=== PATIENT | female | born 1955 | race Asian ===

== ENCOUNTER 2022-12-19 11:04 | Emergency (ER) | payer OTHER ==
[2022-12-19] MEDS ORDERED: MAG HYDROX/AL HYDROX/SIMETH 30 ML UDC PO STA (11:33)
[2022-12-19] MEDS ORDERED: FAMOTIDINE 20 MG TABLET PO STA (11:33)
--- NOTE | 2022-12-19 11:33 | ED Physician Documentation ---
History of Present Illness - Stated complaint Stated Complaint: SORE THROAT - Chief complaint Chief Complaint: Heent - History obtained from History obtained from: Patient - Additonal information Additional information: 67-year-old female with a past medical history of GERD presents with a reported exacerbation of her GERD. She has had some reflux and mild midepigastric tenderness Without guarding on physical exam and reports a sour taste in her mouth. Her symptoms worsen yesterday after she drank some alcohol in celebration of a friend's birthday. She does not drink on a daily basis but does tend to develop worsening GERD symptoms when she drinks any alcohol. She does also smoke cigarettes daily and states she has been told that she needs to quit and if they are contributing to her symptoms but she has not done so yet. She is on omeprazole, takes only as needed and took it today with substantial relief in her symptoms. She has not had any other abdominal pain, no nausea or vomiting, no diarrhea or constipation, no urinary symptoms. She denies any chest pain or difficulty breathing. She does not use any NSAIDs to her knowledge. She has not seen a doctor in several years, and has never had any endoscopy. Review of Systems Constitutional: reports: Reviewed and negative Eyes: reports: Reviewed and negative Ears: reports: Reviewed and negative Nose: reports: Reviewed and negative Throat: reports: Reviewed and negative Cardiac: reports: Reviewed and negative Respiratory: reports: Reviewed and negative GI: reports: Other (Reflux). denies: Abdominal Pain, Abdominal Swelling, Nausea, Vomiting, Constipation, Diarrhea, Hematemesis, Bloody / black stool : reports: Reviewed and negative Skin: reports: Reviewed and negative Musculoskeletal: reports: Reviewed and negative Neurologic: reports: Reviewed and negative Psychiatric: reports: Reviewed and negative Endocrine: reports: Reviewed and negative PD PAST MEDICAL HISTORY - Past Medical History Past Medical History: Yes GI: GERD Other Past Medical History: Tobacco abuse, alcohol use. - Present Medications Home Medications: Ambulatory Orders Medication Instructions Recorded Confirmed Sucralfate [Carafate] 1 gm PO ACHS #420 ml 12/19/22 - Allergies Allergies/Adverse Reactions: Allergies Allergy/AdvReac Type Severity Reaction Status Date / Time No Known Drug Allergies Allergy Verified 12/19/22 11:16 PD ED PE NORMAL - Vitals Vital signs reviewed: Yes - General General: Alert and oriented X 3, No acute distress, Well developed/nourished - HEENT HEENT: Atraumatic, Pharynx benign - Neck Neck: Supple, no meningeal sign, No JVD - Cardiac Cardiac: RRR, No murmur, No gallop, No rub, Strong equal pulses - Respiratory Respiratory: No respiratory distress, Clear bilaterally - Abdomen Abdomen: Normal bowel sounds, Soft, Non tender, Non distended, No organomegaly, Other ( mild mid epigastric tenderness with out guarding. No other abd ttp, no distension. ) - Derm Derm: Normal color, Warm and dry, No rash - Neuro Neuro: Alert and oriented X 3, No motor deficit, No sensory deficit, Normal speech Eye Opening: Spontaneous Motor: Obeys Commands Verbal: Oriented GCS Score: 15 Results - Vitals Vitals: Vital Signs - 24 hr 12/19/22 12/19/22 11:11 12:42 Temperature 37.0 C Heart Rate 117 H 96 Respiratory 16 18 Rate Blood Pressure 160/97 H 176/101 H O2 Saturation 99 100 PD Medical Decision Making - ED course Complexity details: re-evaluated patient, considered differential, d/w patient ED course: 67-year-old female with a past medical history of GERD, tobacco use and o ccasional alcohol use presents today with sour taste in her mouth and increasing reflux symptoms. She tried omeprazole this morning without relief. On exam, she is well-appearing, she has minimal midepigastric tenderness with palpation but no other abdominal tenderness, no distention. She is mildly tachycardic on exam but did smoke just prior to coming in. Her symptoms worsened after drinking alcohol yesterday and she may have a mild gastritis. I recommended that we treat with Maalox and famotidine here, and and omeprazole she was given these with improvement in her symptoms. Her pain did not go away completely but she was feeling better. I think she is stable for discharge with treatment for exacerbation of her GERD, recommended she increase omeprazole to twice a day and we will give a short course Of Carafate for her symptoms. She was advised to avoid any alcohol, NSAIDs, spicy or heavy foods. I recommend a clear liquid diet today and advancing as tolerated. I advised her to try to quit smoking, and avoid coffee and other irritants. She may benefit from an endoscopy if her symptoms do not improve as she does have some risk factors for gastric cancer, H. pylori, or chronic changes from GERD. Patient was also noted to be hypertensive here. She states she does not have a history of hypertension but has not seen a physician for several years. It was recommended that she call tomorrow to reestablish care with her primary care provider and follow-up for hypertension as well as tobacco use, and to schedule follow-up for possible outpatient endoscopy. I discussed return precautions if new or worsening symptoms including increasing abdominal pain, vomiting, fever, abdominal distention or other new concerns. Departure - Departure Disposition: 01 Home, Self Care Clinical Impression: Dyspepsia, Tobacco abuse counseling Hypertension Qualifiers: Hypertension type: primary hypertension Qualified Code(s): I10 - Essential (primary) hypertension Condition: Good Instructions: ED GERD Prescriptions: Sucralfate [Carafate] 1 gm PO ACHS #420 ml Comments: Please increase your omeprazole to twice daily for the next 7 days and take the new prescription Carafate. I recommend you see your primary doctor and consider referral for endoscopy if you have ongoing symptoms. Please adhere to low spice and low fat diet, avoid tobacco products/smoking, avoid alcohol, and do not take any ibuprofen or naproxen. Your blood pressure is also elevated and I recommend recheck in the next week or two. Medication sent to [facility] Forms: PCP List Discharge Date/Time: 12/19/22 12:44
[2022-12-19 12:50] VITALS: BP 176/101
== END 2022-12-19 12:44 | disposition home or self-care (01) ==
LOC: ED 11:04
DX: K21.9 Gastro-esophageal reflux disease without esophagitis (principal); I10 Essential (primary) hypertension; F17.210 Nicotine dependence, cigarettes, uncomplicated
CPT/HCPCS: 99282; 99283; A9270

== ENCOUNTER 2023-04-08 13:42 | Outpatient (CLI) | payer OTHER ==
--- NOTE | 2023-04-12 13:05 | Mammography Report ---
BILATERAL FIRST EVER DIGITAL SCREENING MAMMOGRAM 3D/2D: 04/08/2023 CLINICAL: Baseline exam. Routine screening. No prior exams were available for comparison. There are scattered areas of fibroglandular density in both breasts (category b / 25%-50% glandular t issue). There is an oval focal asymmetry in the left breast at 9 o'clock posterior depth. No other significant masses, calcifications, or other findings are seen in either breast. IMPRESSION: INCOMPLETE: NEEDS ADDITIONAL IMAGING EVALUATION The oval focal asymmetry in the left breast is indeterminate. Additional views with possible ultraso und are recommended. Based on the Tyrer Cuzick model (a risk assessment model) the patients lifetime risk is 3.5% and her 10 year risk is 1.8%. According to the ACR, ACS, and NCCN guidelines, an annual breast MRI exam armando g with mammogram is recommended if the patients lifetime risk is 20% or greater. This exam was interpreted at Station ID: [id number]. NOTE: For mammograms, a report in lay terms will be sent to the patient. Approximately 15% of breast malignancies will not be visualized mammographically. In the management of a palpable breast mass, a negative mammogram must not discourage biopsy of a clinically suspicious lesion. Electronically Signed By: Eduardo herrera/sadaf:04/11/2023 11:30:13 ACR BI-RADS Category 0: Incomplete 3340F PARENCHYMAL PATTERN: (A) - The breast(s) demonstrate(s) scattered fibroglandular densities. BI-RADS CATEGORY: (0) - 0 Mammo and [place] [id number] Immediate follow-up LATERALITY: (L)
== END 2023-04-08 13:43 | disposition home or self-care (01) ==
LOC: DI 13:42
PROVIDERS: ATTEND Physician Assistant
DX: Z12.31 Encounter for screening mammogram for malignant neoplasm of breast (principal); R92.8 Other abnormal and inconclusive findings on diagnostic imaging of breast; R92.323 Mammographic fibroglandular density, bilateral breasts

== ENCOUNTER 2023-05-13 07:47 | Outpatient (CLI) | payer OTHER ==
--- NOTE | 2023-05-18 12:57 | Ultrasound Report ---
LIMITED ULTRASOUND OF LEFT BREAST: 05/13/2023 CLINICAL: Patient returns today to evaluate a focal asymmetry in the left breast. Comparison is made to exams dated: 05/13/2023 mammogram and 04/08/2023 mammogram - [facility]. Real-time ultrasound of the left breast 8 o'clock region was performed. Rowan scale images of the re al-time examination were reviewed. There is a possible 0.4 cm x 0.3 cm x 0.4 cm oval mass with a circumscribed margin in the left breast at 8 o'clock middle depth 3 cm from the nipple. This correlates with mammography findings. IMPRESSION: PROBABLY BENIGN The possible 0.4 cm x 0.3 cm x 0.4 cm oval mass in the left breast is probably benign, possibly a sma ll intramammary lymph node. A follow-up mammogram and an ultrasound in 6 months is recommended to demonstrate stability. This exam was interpreted at Station ID: [id number]. Electronically Signed By: Ebenezer West M.D. lc/:05/13/2023 09:23:15 Ultrasound BI-RADS: 3 Probably benign BI-RADS CATEGORY: (3) - 3 Mammo and [place] [id number] 6 month follow-up LATERALITY: (B)
--- NOTE | 2023-05-18 12:57 | Mammography Report ---
UNILATERAL LEFT DIGITAL DIAGNOSTIC MAMMOGRAM 3D/2D WITH SPOT COMPRESSION: 05/13/2023 CLINICAL: Patient returns today to evaluate a focal asymmetry in the left breast. Comparison is made to exam dated: 04/08/2023 mammogram - [facility]. There are scattered areas of fibroglandular density in the left breast (category b / 25%-50% glandula r tissue). There is a 0.5 cm oval mass with a circumscribed margin in the left breast at 9 o'clock posterior dep th. This is seen in additional views. No other significant masses or calcifications are seen in the breast. IMPRESSION: INCOMPLETE: NEEDS ADDITIONAL IMAGING EVALUATION The 0.5 cm oval mass in the left breast is indeterminate. An ultrasound is recommended. Based on the Tyrer Cuzick model (a risk assessment model) the patients lifetime risk is 3.5% and her 10 year risk is 1.8%. According to the ACR, ACS, and NCCN guidelines, an annual breast MRI exam armando g with mammogram is recommended if the patients lifetime risk is 20% or greater. This exam was interpreted at Station ID: [id number]. NOTE: For mammograms, a report in lay terms will be sent to the patient. Approximately 15% of breast malignancies will not be visualized mammographically. In the management of a palpable breast mass, a negative mammogram must not discourage biopsy of a clinically suspicious lesion. Electronically Signed By: Ebenezer West M.D. lc/:05/13/2023 09:21:29 ACR BI-RADS Category 0: Incomplete 3340F PARENCHYMAL PATTERN: (A) - The breast(s) demonstrate(s) scattered fibroglandular densities. BI-RADS CATEGORY: (0) - 0 Ultrasound [id number] Immediate follow-up LATERALITY: (B)
== END 2023-05-13 07:48 | disposition home or self-care (01) ==
LOC: DI 07:47
PROVIDERS: ATTEND Physician Assistant
DX: R92.8 Other abnormal and inconclusive findings on diagnostic imaging of breast (principal)

== ENCOUNTER 2023-05-20 09:42 | Outpatient (CLI) | payer OTHER ==
--- NOTE | 2023-05-20 14:39 | DEXA Report ---
PROCEDURE: Dexa Spine and/or Hip INDICATIONS: POST MENOPAUSAL TECHNIQUE: Dual energy x-ray absorptiometry (DXA) was performed on a [facility]. Regions measur ed are the AP Spine, femoral neck, and if needed forearm. COMPARISON: None. FINDINGS: Lumbar Spine: Bone Mineral Density 0.759 g/cm/cm,T score -3.5. Left Femoral Neck: Bone Mineral Density 0.686 g/cm/cm, T score -2.5. Left Hip: Bone Mineral Density 0.706 g/cm/cm,T score -2.4. (T score greater or equal to -1.0: NORMAL) (T score from -1.1 to -2.4: OSTEOPENIA) (T score less than or equal to -2.5 to: OSTEOPOROSIS) Impression: By WHO criteria, this patient has osteoporosis. Patients with diagnosis of osteoporosis or osteopenia should have regular bone mineral density assess ment. For those eligible for Medicare, routine testing is allowed once every 2 years. Testing frequ ency can be increased for patients who have rapidly progressing disease or for those who are receivin g medical therapy to restore bone mass. Reviewed by: Eduardo Burnham MD on 05/20/2023 2:38 PM PST Approved by: Eduardo Burnham MD on 05/20/2023 2:38 PM PST Station ID: [id number]
== END 2023-05-20 09:43 | disposition home or self-care (01) ==
LOC: DI 09:42
PROVIDERS: ATTEND Physician Assistant
DX: Z13.820 Encounter for screening for osteoporosis (principal); M81.0 Age-related osteoporosis without current pathological fracture; Z78.0 Asymptomatic menopausal state